=== PATIENT | male | born 1935 | race Asian ===

== ENCOUNTER 2024-02-14 15:16 | Inpatient (IN) | payer MEDICARE ==
[~2024-02-14] VITALS: Ht 167.6 cm; Wt 55.2 kg
[2024-02-14] VITALS (20 sets, daily range): BP systolic 86–111; BP diastolic 54–78; PULSE 102–127; RESP 24–36; TEMP 98.9–103.2; O2SAT 89–96
[2024-02-14] MEDS ORDERED: DEXTROSE 50% SYRINGE 50 ML IV PRN (17:30)
[2024-02-14] MEDS ORDERED: INSULIN REGULAR, HUMAN 3ML VL 100 UNIT in SODIUM CHLORIDE 0.9% 99 ML IV SCH (17:30)
[2024-02-14] MEDS ORDERED: DETROL LA4 MG PO (17:55)
[2024-02-14] MEDS ORDERED: ATORVASTATIN CA10 MG PO (17:55)
[2024-02-14] MEDS ORDERED: METFORMIN HCL500 M1 PO (17:55)
[2024-02-14] MEDS ORDERED: ALBUTEROL0.63 MG/3 NEB (17:55)
[2024-02-14] MEDS ORDERED: MIRTAZAPINE15 MG PO (17:55)
[2024-02-14] MEDS ORDERED: FLOMAX0.4 MG PO (17:55)
[2024-02-14] MEDS ORDERED: ACTOS15 MG PO (17:55)
[2024-02-14] MEDS ORDERED: JARDIANCE25 MG PO (17:55)
[2024-02-14] MEDS ORDERED: BENZONATATE 100 MG CAP PO PRN (18:00)
[2024-02-14 18:01] LABS: BASOPHILS # (AUTO) 0.1 (0.0-0.1); BASOPHILS % 2.8 % (0.0-1.0); HEMATOCRIT 46.3 % (38.2-49.6); HEMOGLOBIN 13.4 g/dL (14.0-18.0); LYMPHOCYTES # (AUTO) 0.2 (1.0-3.2); LYMPHOCYTES % 12.5 % (18.0-39.1); MEAN CORPUSCULAR HEMOGLOBIN 29.8 pg (28-32); MEAN CORPUSCULAR HGB CONC 28.9 g/dL (31-35); MEAN CORPUSCULAR VOLUME 103.1 fL (81-99); MONOCYTES % 2.3 % (4.4-11.3); NEUTROPHILS # (AUTO) 1.2 (2.1-6.9); NEUTROPHILS % 68.2 % (38.7-80.0); PLATELET COUNT 148 x10e3/uL (140-360); RED BLOOD COUNT 4.49 x10e6/uL (4.3-5.7)
[2024-02-14 18:03] LABS: ABG HCO3 13 mmol/L (22-26); ABG PCO2 25 mmHg (35-45); ABG PO2 55 mmHg (80-105); ABG TCO2 13
[2024-02-14 18:05] LABS: WHITE BLOOD COUNT 1.76 x10e3/uL (4.8-10.8)
[2024-02-14 18:25] LABS: ALBUMIN 2.8 g/dL (3.5-5.0); ALBUMIN/GLOBULIN RATIO 0.8 (0.8-2.0); ANION GAP 27.9 mmol/L (8-16); BILIRUBIN,TOTAL 0.4 mg/dL (0.2-1.2); CALCIUM 9.4 mg/dL (8.4-10.2); CREATININE, SERUM 2.21 mg/dL (0.72-1.25); POTASSIUM 3.9 mmol/L (3.5-5.1); TOTAL PROTEIN 6.4 g/dL (6.5-8.1)
[2024-02-14 19:34] LABS: MAGNESIUM 2.5 MG/DL (1.3-2.1)
[2024-02-14] MEDS ORDERED: HYDRALAZINE HCL 20 MG/ML VIAL IV PRN (19:45)
[2024-02-14] MEDS ORDERED: MAGNESIUM/ALUMINUM/SIMETHICONE 30 ML UDC PO PRN (19:45)
[2024-02-14] MEDS ORDERED: DOCUSATE SODIUM 100 MG CAP PO PRN (19:45)
[2024-02-14] MEDS: SODIUM BICARBONATE 8.4% VIAL 150 ML in STERILE WATER IV SOLN 1,000 ML IV SCH (19:52)
[2024-02-14 19:53] LABS: THYROID STIMULATING HORMONE 0.279 uIU/mL (0.350-4.940)
[2024-02-14] MEDS ORDERED: POTASSIUM CHLORIDE 20MEQ/100ML 200 ML IV PRN (20:15)
[2024-02-14] MEDS ORDERED: MAGNESIUM SULF 1GRAM/DEXTROSE 100 ML IV PRN (20:15)
[2024-02-14 20:59] LABS: BAND NEUTROPHILS % (MANUAL) 16 %; LYMPHOCYTES % (MANUAL) 28 % (19-48); METAMYELOCYTES % (MANUAL) 8 % (0-0); MONOCYTES % (MANUAL) 22 % (3.4-9.0); MYELOCYTES % (MANUAL) 2 % (0-0); NEUTROPHILS % (MANUAL) 12 % (40-74); NUCLEATED RED BLOOD CELLS 1; PROMYELOCYTES % (MANUAL) 12 % (0-0)
[2024-02-14] MEDS: ACETAMINOPHEN 325 MG TAB PO PRN (21:00)
[2024-02-14] MEDS ORDERED: OSELTAMIVIR PHOSPHATE 75 MG CAP PO SCH (21:00)
[2024-02-14 21:01] LABS: CRENATED RBC MODERATE
[2024-02-14 21:02] LABS: POIKILOCYTOSIS SLIGHT
[2024-02-14 21:04] LABS: ANISOCYTOSIS SLIG; PLATELET ESTIMATE ADEQUATE
[2024-02-14 21:05] LABS: PLATELET MORPHOLOGY COMMENT FEW LARGE
[2024-02-14] MEDS: Doxycycline IV 100 MG in SODIUM CHLORIDE 0.9% 100 ML IV SCH (21:28)
[2024-02-14] MEDS: MUPIROCIN 2% OINT 22 GM TUBE TOP SCH (21:28)
[2024-02-14] MEDS: THIAMINE HCL INJ 100 MG/ML 2ML VIAL IV ONE (21:55)
[2024-02-14] MEDS: HEPARIN SOD (PORCINE) 5,000 UNIT/ML VIAL SC SCH (21:57)
[2024-02-14] MEDS: OSELTAMIVIR PHOSPHATE 30 MG CAPSULE PO SCH (21:58)
[2024-02-15] VITALS (53 sets, daily range): BP systolic 67–135; BP diastolic 41–101; PULSE 51–123; RESP 18–38; TEMP 99.4–100; O2SAT 86–100
[2024-02-15] MEDS: IPRATROPIUM BROMIDE 0.02% 2.5 ML NEB NEB SCH (01:00)
[2024-02-15] MEDS: NOREPINEPHRINE 8 MG/D5W 250 ML 250 ML IV SCH (03:15)
[2024-02-15] MEDS ORDERED: Morphine 2mg Syringe 2 MG/ML SYR IV PRN (03:15)
[2024-02-15] MEDS: ACETAMINOPHEN 1000 MG/100 ML IV STA (03:21)
[2024-02-15 06:49] LABS: BASOPHILS % 1.5 % (0.0-1.0); HEMATOCRIT 38.5 % (38.2-49.6); LYMPHOCYTES # (AUTO) 0.1 (1.0-3.2); LYMPHOCYTES % 4.5 % (18.0-39.1); MEAN CORPUSCULAR HEMOGLOBIN 29.8 pg (28-32); MEAN CORPUSCULAR HGB CONC 30.6 g/dL (31-35); MONOCYTES # (AUTO) 0.1 (0.2-0.8); MONOCYTES % 3.8 % (4.4-11.3); NEUTROPHILS # (AUTO) 2.2 (2.1-6.9); NEUTROPHILS % 84.1 % (38.7-80.0); RED BLOOD COUNT 3.96 x10e6/uL (4.3-5.7); RED CELL DISTRIBUTION WIDTH 13.7 % (11.7-14.4); WHITE BLOOD COUNT 2.64 x10e3/uL (4.8-10.8)
[2024-02-15 06:57] LABS: PLATELET COUNT 109 x10e3/uL (140-360)
[2024-02-15 06:58] LABS: HEMOGLOBIN 11.8 g/dL (14.0-18.0); MEAN CORPUSCULAR VOLUME 97.2 fL (81-99)
[2024-02-15 07:03] LABS: ANION GAP 15.1 mmol/L (8-16); CALCIUM 8.6 mg/dL (8.4-10.2); CREATININE, SERUM 1.68 mg/dL (0.72-1.25)
[2024-02-15 07:05] LABS: POTASSIUM 3.1 mmol/L (3.5-5.1)
[2024-02-15] MEDS ORDERED: DEXTROSE 50% SYRINGE 50 ML IV PRN (08:00)
[2024-02-15] MEDS: POTASSIUM CHLORIDE 20MEQ/100ML 100 ML INJ PRN (08:05)
[2024-02-15] MEDS ORDERED: SODIUM BICARBONATE 8.4% IV SCH (08:30)
[2024-02-15] MEDS ORDERED: STERILE WATER IV SCH (08:30)
[2024-02-15] MEDS: FOLIC ACID 1 MG TAB PO SCH (09:00)
[2024-02-15] MEDS: THIAMINE HCL 100 MG TAB PO SCH (09:00)
[2024-02-15 09:19] LABS: BILIRUBIN,URINE SMALL (NEGATIVE); CLARITY,URINE CLEAR (CLEAR); COLOR,URINE YELLOW (YELLOW); GLUCOSE, URINE 500 (NEGATIVE); KETONES,URINE NEGATIVE (NEGATIVE); LEUKOCYTE ESTERASE ,URINE NEGATIVE (NEGATIVE); NITRITE,URINE NEGATIVE (NEGATIVE); PH,URINE 6 (5 - 7); PROTEIN,URINE DIPSTICK >=300 (NEGATIVE); URINE UROBILINOGEN 0.2 mg/dL (0.2 - 1)
[2024-02-15 09:52] LABS: BACTERIA,URINE MANY /HPF; EPITHELIAL CELLS,URINE FEW /LPF
[2024-02-15 09:55] LABS: TRANSITIONAL EPI CELLS,URINE RARE
[2024-02-15] MEDS: MULTIVITAMINS/MINERALS TAB PO SCH (10:36)
[2024-02-15] MEDS: FUROSEMIDE INJ 10 MG/ML 4 ML VIAL IV ONE (11:00)
[2024-02-15] MEDS: DEXTROSE 5%/0.45% SOD CHL 1,000 ML IV ONE ×3 (11:00→23:16)
[2024-02-15 11:01] LABS: BAND NEUTROPHILS % (MANUAL) 14 %; EOSINOPHILS % (MANUAL) 1 % (0-7); LYMPHOCYTES % (MANUAL) 2 % (19-48); METAMYELOCYTES % (MANUAL) 26 % (0-0); MONOCYTES % (MANUAL) 4 % (3.4-9.0); MYELOCYTES % (MANUAL) 20 % (0-0); NEUTROPHILS % (MANUAL) 33 % (40-74)
[2024-02-15 11:02] LABS: PLATELET ESTIMATE MODERATELY DECREASED; PLATELET MORPHOLOGY COMMENT NORMAL
[2024-02-15] MEDS: INSULIN REGULAR, HUMAN 100 UNIT/1 ML SQ SCH (12:39)
[2024-02-15 15:14] LABS: CREATININE,URINE RANDOM 80.68 mg/dL (63-166)
[2024-02-15 15:15] LABS: SODIUM,URINE < 20 mmol/L
[2024-02-15] MEDS: GUAIFENESIN/DEXTROMETHORPHAN LIQD 5 ML UDC NG PRN (20:20)
[2024-02-15] MEDS: MELATONIN 3 MG TAB PO PRN (20:22)
[2024-02-15] MEDS: ACETAMINOPHEN 1000 MG/100 ML IV PRN (21:00)
[2024-02-16] VITALS (49 sets, daily range): BP systolic 88–140; BP diastolic 57–112; PULSE 27–138; RESP 20–41; TEMP 97.4–99.2; O2SAT 89–100
[2024-02-16 09:38] LABS: BASOPHILS % 0.1 % (0.0-1.0); HEMATOCRIT 40.3 % (38.2-49.6); HEMOGLOBIN 12.2 g/dL (14.0-18.0); LYMPHOCYTES # (AUTO) 0.1 (1.0-3.2); LYMPHOCYTES % 0.7 % (18.0-39.1); MEAN CORPUSCULAR HEMOGLOBIN 29.8 pg (28-32); MEAN CORPUSCULAR HGB CONC 30.3 g/dL (31-35); MEAN CORPUSCULAR VOLUME 98.3 fL (81-99); MONOCYTES # (AUTO) 0.1 (0.2-0.8); MONOCYTES % 0.5 % (4.4-11.3); NEUTROPHILS # (AUTO) 14.2 (2.1-6.9); NEUTROPHILS % 96.7 % (38.7-80.0); PLATELET COUNT 55 x10e3/uL (140-360); RED CELL DISTRIBUTION WIDTH 14.1 % (11.7-14.4); WHITE BLOOD COUNT 14.73 x10e3/uL (4.8-10.8)
[2024-02-16] MEDS: DEXMEDETOMIDINE 400MCG/NS100ML 100 ML IV PRN (09:45)
[2024-02-16 10:18] LABS: ALBUMIN 2.3 g/dL (3.5-5.0); ALBUMIN/GLOBULIN RATIO 0.7 (0.8-2.0); ANION GAP 18.2 mmol/L (8-16); BILIRUBIN,TOTAL 0.9 mg/dL (0.2-1.2); CALCIUM 8.6 mg/dL (8.4-10.2); CREATININE, SERUM 1.27 mg/dL (0.72-1.25); POTASSIUM 3.2 mmol/L (3.5-5.1); TOTAL PROTEIN 5.6 g/dL (6.5-8.1)
[2024-02-16] MEDS: DEXTROSE 5% 1,000 ML IV ONE (10:52)
[2024-02-16] MEDS: POTASSIUM CHLORIDE 10MEQ/100ML 400 ML IV ONE (10:52)
[2024-02-16 12:03] LABS: BAND NEUTROPHILS % (MANUAL) 19 %; LYMPHOCYTES % (MANUAL) 4 % (19-48); METAMYELOCYTES % (MANUAL) 11 % (0-0); MONOCYTES % (MANUAL) 2 % (3.4-9.0); MYELOCYTES % (MANUAL) 5 % (0-0); NEUTROPHILS % (MANUAL) 59 % (40-74)
[2024-02-16 12:04] LABS: ANISOCYTOSIS SLIGHT; PLATELET ESTIMATE MARKEDLY DECREASED; PLATELET MORPHOLOGY COMMENT NORMAL
[2024-02-16] MEDS: DEXTROSE 5% 1,000 ML IV SCH (21:24)
[2024-02-16] MEDS: LORAZEPAM INJ 2 MG/ML VIAL IV ONE (23:36)
[2024-02-17] VITALS (38 sets, daily range): BP systolic 73–130; BP diastolic 55–82; PULSE 38–146; RESP 18–44; TEMP 97.6–99.7; O2SAT 55–100
[2024-02-17 06:49] LABS: BASOPHILS % 0.1 % (0.0-1.0); HEMATOCRIT 37.4 % (38.2-49.6); HEMOGLOBIN 11.1 g/dL (14.0-18.0); LYMPHOCYTES # (AUTO) 0.2 (1.0-3.2); LYMPHOCYTES % 1.6 % (18.0-39.1); MEAN CORPUSCULAR HEMOGLOBIN 29.8 pg (28-32); MEAN CORPUSCULAR HGB CONC 29.7 g/dL (31-35); MEAN CORPUSCULAR VOLUME 100.3 fL (81-99); MONOCYTES # (AUTO) 0.1 (0.2-0.8); MONOCYTES % 0.9 % (4.4-11.3); NEUTROPHILS # (AUTO) 9.5 (2.1-6.9); NEUTROPHILS % 89.4 % (38.7-80.0); RED BLOOD COUNT 3.73 x10e6/uL (4.3-5.7); RED CELL DISTRIBUTION WIDTH 13.1 % (11.7-14.4); WHITE BLOOD COUNT 10.66 x10e3/uL (4.8-10.8)
[2024-02-17 07:06] LABS: PLATELET COUNT 31 x10e3/uL (140-360)
[2024-02-17 07:23] LABS: ALBUMIN 1.9 g/dL (3.5-5.0); ALBUMIN/GLOBULIN RATIO 0.6 (0.8-2.0); ANION GAP 19.7 mmol/L (8-16); BILIRUBIN,TOTAL 0.9 mg/dL (0.2-1.2); CALCIUM 8.5 mg/dL (8.4-10.2); CREATININE, SERUM 1.1 mg/dL (0.72-1.25); POTASSIUM 3.7 mmol/L (3.5-5.1); TOTAL PROTEIN 5.1 g/dL (6.5-8.1)
[2024-02-17] MEDS: LORAZEPAM INJ 2 MG/ML VIAL IV ONE (09:29)
[2024-02-17 10:46] LABS: ABG HCO3 13 mmol/L (22-26); ABG PCO2 25 mmHg (35-45); ABG PO2 55 mmHg (80-105); ABG TCO2 13
[2024-02-17 10:52] LABS: ANISOCYTOSIS SLIGHT; BAND NEUTROPHILS % (MANUAL) 8 %; LYMPHOCYTES % (MANUAL) 5 % (19-48); METAMYELOCYTES % (MANUAL) 6 % (0-0); MONOCYTES % (MANUAL) 1 % (3.4-9.0); MYELOCYTES % (MANUAL) 5 % (0-0); NEUTROPHILS % (MANUAL) 75 % (40-74); PLATELET ESTIMATE MARKEDLY DECREASED; PLATELET MORPHOLOGY COMMENT NORMAL
[2024-02-17] MEDS: LORAZEPAM INJ 2 MG/ML VIAL IV PRN (23:26)
[2024-02-18] VITALS (49 sets, daily range): BP systolic 70–129; BP diastolic 57–96; PULSE 52–108; RESP 20–33; TEMP 97.8–99; O2SAT 93–100
[2024-02-18 06:20] LABS: BASOPHILS % 0.1 % (0.0-1.0); HEMATOCRIT 34.1 % (38.2-49.6); HEMOGLOBIN 10.8 g/dL (14.0-18.0); LYMPHOCYTES # (AUTO) 0.2 (1.0-3.2); LYMPHOCYTES % 1.8 % (18.0-39.1); MEAN CORPUSCULAR HEMOGLOBIN 29.7 pg (28-32); MEAN CORPUSCULAR HGB CONC 31.7 g/dL (31-35); MONOCYTES # (AUTO) 0.2 (0.2-0.8); MONOCYTES % 2.1 % (4.4-11.3); NEUTROPHILS # (AUTO) 9.1 (2.1-6.9); NEUTROPHILS % 89.6 % (38.7-80.0); RED BLOOD COUNT 3.64 x10e6/uL (4.3-5.7); RED CELL DISTRIBUTION WIDTH 14.1 % (11.7-14.4); WHITE BLOOD COUNT 10.16 x10e3/uL (4.8-10.8)
[2024-02-18 06:27] LABS: MEAN CORPUSCULAR VOLUME 93.7 fL (81-99); PLATELET COUNT 26 x10e3/uL (140-360)
[2024-02-18 07:12] LABS: ALBUMIN 1.7 g/dL (3.5-5.0); ALBUMIN/GLOBULIN RATIO 0.5 (0.8-2.0); ANION GAP 15.6 mmol/L (8-16); BILIRUBIN,TOTAL 0.7 mg/dL (0.2-1.2); CALCIUM 8.2 mg/dL (8.4-10.2); CREATININE, SERUM 0.97 mg/dL (0.72-1.25); POTASSIUM 3.6 mmol/L (3.5-5.1); TOTAL PROTEIN 4.8 g/dL (6.5-8.1)
[2024-02-18 08:19] LABS: LYMPHOCYTES % (MANUAL) 4 % (19-48); MONOCYTES % (MANUAL) 3 % (3.4-9.0); MYELOCYTES % (MANUAL) 2 % (0-0); NEUTROPHILS % (MANUAL) 91 % (40-74); PLATELET ESTIMATE MARKEDLY DECREASED; PLATELET MORPHOLOGY COMMENT NORMAL; RBC MORPHOLOGY COMMENT NORMAL
[2024-02-18] MEDS: VASOPRESSIN 60 UNIT in DEXTROSE 5% 50ML 57 ML IV SCH (16:30)
[2024-02-18 18:09] LABS: ABG PCO2 51 mmHg (35-45); ABG PH 7.35 (7.35-7.45); ABG PO2 135 mmHg (80-105)
[2024-02-18 18:10] LABS: ABG HCO3 28 mmol/L (22-26); ABG TCO2 30
[2024-02-18] MEDS: PERIPHERAL TPN FORMULA 1 BAG IV SCH (19:33)
[2024-02-19] VITALS (42 sets, daily range): BP systolic 72–198; BP diastolic 58–115; PULSE 48–113; RESP 20–47; TEMP 98.3–100.2; O2SAT 92–100
[2024-02-19] MEDS: LORAZEPAM INJ 2 MG/ML VIAL IV ONE (00:50)
[2024-02-19 04:34] LABS: ABG HCO3 24 mmol/L (22-26); ABG PCO2 42 mmHg (35-45); ABG PH 7.37 (7.35-7.45); ABG PO2 81 mmHg (80-105); ABG TCO2 25
[2024-02-19 07:04] LABS: BASOPHILS % 0.4 % (0.0-1.0); HEMATOCRIT 28.5 % (38.2-49.6); HEMOGLOBIN 8.8 g/dL (14.0-18.0); LYMPHOCYTES # (AUTO) 0.2 (1.0-3.2); LYMPHOCYTES % 2.9 % (18.0-39.1); MEAN CORPUSCULAR HEMOGLOBIN 29.8 pg (28-32); MEAN CORPUSCULAR HGB CONC 30.9 g/dL (31-35); MEAN CORPUSCULAR VOLUME 96.6 fL (81-99); MONOCYTES # (AUTO) 0.1 (0.2-0.8); MONOCYTES % 1.8 % (4.4-11.3); NEUTROPHILS # (AUTO) 7.3 (2.1-6.9); NEUTROPHILS % 91.1 % (38.7-80.0); RED BLOOD COUNT 2.95 x10e6/uL (4.3-5.7); RED CELL DISTRIBUTION WIDTH 14.2 % (11.7-14.4); WHITE BLOOD COUNT 7.98 x10e3/uL (4.8-10.8)
[2024-02-19 07:18] LABS: PLATELET COUNT 22 x10e3/uL (140-360)
[2024-02-19 07:24] LABS: ALBUMIN 1.1 g/dL (3.5-5.0); ALBUMIN/GLOBULIN RATIO 0.5 (0.8-2.0); ANION GAP 15.4 mmol/L (8-16); BILIRUBIN,TOTAL 0.6 mg/dL (0.2-1.2); CALCIUM 7.1 mg/dL (8.4-10.2); CREATININE, SERUM 0.78 mg/dL (0.72-1.25); TOTAL PROTEIN 3.4 g/dL (6.5-8.1)
[2024-02-19 07:31] LABS: POTASSIUM 6.4 mmol/L (3.5-5.1)
[2024-02-19 08:54] LABS: ALBUMIN 1.5 g/dL (3.5-5.0); ALBUMIN/GLOBULIN RATIO 0.4 (0.8-2.0); ANION GAP 17.2 mmol/L (8-16); BILIRUBIN,TOTAL 0.8 mg/dL (0.2-1.2); CALCIUM 8.5 mg/dL (8.4-10.2); CREATININE, SERUM 0.92 mg/dL (0.72-1.25); POTASSIUM 4.2 mmol/L (3.5-5.1); TOTAL PROTEIN 4.9 g/dL (6.5-8.1)
[2024-02-19 09:17] LABS: BAND NEUTROPHILS % (MANUAL) 9 %; LYMPHOCYTES % (MANUAL) 5 % (19-48); MONOCYTES % (MANUAL) 1 % (3.4-9.0); NEUTROPHILS % (MANUAL) 85 % (40-74); PLATELET ESTIMATE MARKEDLY DECREASED; PLATELET MORPHOLOGY COMMENT NORMAL; RBC MORPHOLOGY COMMENT NORMAL
[2024-02-19 09:56] LABS: ABG HCO3 24 mmol/L (22-26); ABG PCO2 42 mmHg (35-45); ABG PH 7.37 (7.35-7.45); ABG PO2 81 mmHg (80-105); ABG TCO2 25
[2024-02-19 09:56] LABS: ABG HCO3 28 mmol/L (22-26); ABG PCO2 51 mmHg (35-45); ABG PH 7.35 (7.35-7.45); ABG PO2 135 mmHg (80-105); ABG TCO2 30
[2024-02-19] MEDS: DEXTROSE 5% 1,000 ML IV ONE (10:55)
[2024-02-19] MEDS ORDERED: SODIUM BICARBONATE 8.4% SYRING 150 ML in STERILE WATER IV SOLN 1,000 ML IV SCH (12:00)
[2024-02-19] MEDS: SODIUM BICARBONATE 8.4% INJ 50 ML SYR IV ONE (12:45)
[2024-02-19] MEDS: CALCIUM GLUC 1 G/50 ML NACL 50 ML IV ONE (12:45)
[2024-02-20] VITALS (37 sets, daily range): BP systolic 98–168; BP diastolic 62–104; PULSE 57–104; RESP 18–34; TEMP 98.1–99.5; O2SAT 98–100
[2024-02-20 07:06] LABS: BASOPHILS # (AUTO) 0.1 (0.0-0.1); BASOPHILS % 0.4 % (0.0-1.0); HEMATOCRIT 30.2 % (38.2-49.6); HEMOGLOBIN 9.3 g/dL (14.0-18.0); LYMPHOCYTES # (AUTO) 0.3 (1.0-3.2); LYMPHOCYTES % 2.4 % (18.0-39.1); MEAN CORPUSCULAR HEMOGLOBIN 29.5 pg (28-32); MEAN CORPUSCULAR HGB CONC 30.8 g/dL (31-35); MEAN CORPUSCULAR VOLUME 95.9 fL (81-99); MONOCYTES # (AUTO) 0.3 (0.2-0.8); MONOCYTES % 2.3 % (4.4-11.3); NEUTROPHILS # (AUTO) 10.6 (2.1-6.9); NEUTROPHILS % 93.1 % (38.7-80.0); RED BLOOD COUNT 3.15 x10e6/uL (4.3-5.7); RED CELL DISTRIBUTION WIDTH 14.6 % (11.7-14.4); WHITE BLOOD COUNT 11.43 x10e3/uL (4.8-10.8)
[2024-02-20 07:16] LABS: PLATELET COUNT 42 x10e3/uL (140-360)
[2024-02-20] MEDS: LORAZEPAM INJ 2 MG/ML VIAL IV ONE (08:09)
[2024-02-20 09:06] LABS: ALBUMIN 1.7 g/dL (3.5-5.0); ALBUMIN/GLOBULIN RATIO 0.5 (0.8-2.0); ANION GAP 23.3 mmol/L (8-16); BILIRUBIN,TOTAL 1.1 mg/dL (0.2-1.2); CALCIUM 8.9 mg/dL (8.4-10.2); CREATININE, SERUM 0.86 mg/dL (0.72-1.25); TOTAL PROTEIN 5.3 g/dL (6.5-8.1)
[2024-02-20 09:16] LABS: POTASSIUM 3.3 mmol/L (3.5-5.1)
[2024-02-20] MEDS: INSULIN GLARGINE 100 UNITS/ML VIAL SQ SCH (09:51)
[2024-02-20] MEDS: DEXTROSE 5% 1,000 ML IV ONE (09:55)
[2024-02-20] MEDS: POTASSIUM CHLORIDE 20MEQ/100ML 100 ML IV ONE (10:00)
[2024-02-20] MEDS: DEXTROSE 5% 250ML 250 ML IV ONE (16:46)
[2024-02-20] MEDS: DEXTROSE 5% 1,000 ML IV SCH (16:46)
[2024-02-20] MEDS: ONDANSETRON HCL INJ 2MG/ML 2ML 2 MG/ML VIAL IV PRN (23:55)
[2024-02-21] VITALS (32 sets, daily range): BP systolic 111–149; BP diastolic 57–90; PULSE 25–84; RESP 18–32; TEMP 98.1–99.8; O2SAT 92–100
[2024-02-21 03:02] LABS: VANCOMYCIN,TROUGH 17.6 ug/mL (5.0-10.0)
[2024-02-21 09:16] LABS: BASOPHILS % 0.3 % (0.0-1.0); EOSINOPHILS % 0.1 % (0.0-6.0); HEMATOCRIT 40.1 % (38.2-49.6); HEMOGLOBIN 11.8 g/dL (14.0-18.0); LYMPHOCYTES # (AUTO) 0.3 (1.0-3.2); LYMPHOCYTES % 2.9 % (18.0-39.1); MEAN CORPUSCULAR HEMOGLOBIN 29.9 pg (28-32); MEAN CORPUSCULAR HGB CONC 29.4 g/dL (31-35); MEAN CORPUSCULAR VOLUME 101.5 fL (81-99); MONOCYTES # (AUTO) 0.2 (0.2-0.8); MONOCYTES % 2.1 % (4.4-11.3); NEUTROPHILS # (AUTO) 10.4 (2.1-6.9); NEUTROPHILS % 93.7 % (38.7-80.0); PLATELET COUNT 53 x10e3/uL (140-360); RED BLOOD COUNT 3.95 x10e6/uL (4.3-5.7); WHITE BLOOD COUNT 11.05 x10e3/uL (4.8-10.8)
[2024-02-21 09:49] LABS: ALBUMIN 1.5 g/dL (3.5-5.0); ALBUMIN/GLOBULIN RATIO 0.4 (0.8-2.0); ANION GAP 15.5 mmol/L (8-16); CALCIUM 8.1 mg/dL (8.4-10.2); CREATININE, SERUM 0.72 mg/dL (0.72-1.25); POTASSIUM 3.5 mmol/L (3.5-5.1)
[2024-02-22] VITALS (33 sets, daily range): BP systolic 106–157; BP diastolic 65–117; PULSE 66–98; RESP 21–32; TEMP 99.5–100; O2SAT 81–98
[2024-02-22] MEDS ORDERED: DEXMEDETOMIDINE 400MCG/NS100ML 100 ML IV PRN (07:30)
[2024-02-22] MEDS: BISACODYL 10 MG SUPP PR ONE (08:09)
[2024-02-22 08:25] LABS: BASOPHILS % 0.1 % (0.0-1.0); EOSINOPHILS % 0.1 % (0.0-6.0); HEMATOCRIT 32.4 % (38.2-49.6); HEMOGLOBIN 9.9 g/dL (14.0-18.0); LYMPHOCYTES # (AUTO) 0.3 (1.0-3.2); LYMPHOCYTES % 2.6 % (18.0-39.1); MEAN CORPUSCULAR HEMOGLOBIN 29.5 pg (28-32); MEAN CORPUSCULAR HGB CONC 30.6 g/dL (31-35); MEAN CORPUSCULAR VOLUME 96.4 fL (81-99); MONOCYTES # (AUTO) 0.2 (0.2-0.8); MONOCYTES % 1.9 % (4.4-11.3); NEUTROPHILS # (AUTO) 10.5 (2.1-6.9); NEUTROPHILS % 94.4 % (38.7-80.0); PLATELET COUNT 79 x10e3/uL (140-360); RED BLOOD COUNT 3.36 x10e6/uL (4.3-5.7); RED CELL DISTRIBUTION WIDTH 13.9 % (11.7-14.4); WHITE BLOOD COUNT 11.08 x10e3/uL (4.8-10.8)
[2024-02-22 08:52] LABS: ANION GAP 14.6 mmol/L (8-16); CALCIUM 7.8 mg/dL (8.4-10.2); CREATININE, SERUM 0.64 mg/dL (0.72-1.25); MAGNESIUM 2.6 MG/DL (1.3-2.1); PHOSPHORUS 4.9 MG/DL (2.3-4.7); POTASSIUM 4.6 mmol/L (3.5-5.1)
[2024-02-22] MEDS ORDERED: MELATONIN 3 MG TAB PO PRN (10:30)
[2024-02-22] MEDS: DEXMEDETOMIDINE 400MCG/NS100ML 100 ML IV PRN (11:29)
[2024-02-22] MEDS ORDERED: TRAZODONE HCL 50 MG TAB PO SCH (21:00)
[2024-02-22] MEDS ORDERED: MELATONIN 3 MG TAB PO SCH (21:00)
[2024-02-23] VITALS (32 sets, daily range): BP systolic 110–149; BP diastolic 50–104; PULSE 68–122; RESP 16–33; TEMP 98.5–99.8; O2SAT 93–100
[2024-02-23 06:50] LABS: BASOPHILS % 0.1 % (0.0-1.0); EOSINOPHILS % 0.2 % (0.0-6.0); HEMATOCRIT 30.5 % (38.2-49.6); HEMOGLOBIN 9.8 g/dL (14.0-18.0); LYMPHOCYTES # (AUTO) 0.4 (1.0-3.2); MEAN CORPUSCULAR HEMOGLOBIN 29.4 pg (28-32); MEAN CORPUSCULAR HGB CONC 32.1 g/dL (31-35); MEAN CORPUSCULAR VOLUME 91.6 fL (81-99); MONOCYTES # (AUTO) 0.2 (0.2-0.8); MONOCYTES % 1.6 % (4.4-11.3); NEUTROPHILS # (AUTO) 12.6 (2.1-6.9); NEUTROPHILS % 94.3 % (38.7-80.0); PLATELET COUNT 158 x10e3/uL (140-360); RED BLOOD COUNT 3.33 x10e6/uL (4.3-5.7); RED CELL DISTRIBUTION WIDTH 13.7 % (11.7-14.4); WHITE BLOOD COUNT 13.39 x10e3/uL (4.8-10.8)
[2024-02-23 07:15] LABS: ANION GAP 12.9 mmol/L (8-16); CALCIUM 7.5 mg/dL (8.4-10.2); CREATININE, SERUM 0.64 mg/dL (0.72-1.25)
[2024-02-23 07:24] LABS: POTASSIUM 2.9 mmol/L (3.5-5.1)
[2024-02-23] MEDS ORDERED: SODIUM CHLORIDE 0.9% 250ML 250 ML IV ONE (10:00)
[2024-02-23] MEDS: POTASSIUM CHLORIDE 20MEQ/100ML 200 ML IV ONE (10:41)
[2024-02-23] MEDS: SODIUM CHLORIDE 0.9% 250ML 250 ML IV ONE (10:44)
[2024-02-23] MEDS ORDERED: MULTIVITAMINS/MINERALS TAB PO SCH (13:30)
[2024-02-23] MEDS: LACTOBACILLUS ACIDOPHILUS CAPSULE PO SCH (14:29)
[2024-02-23] MEDS: PERIPHERAL TPN FORMULA 1 BAG IV SCH (19:56)
[2024-02-23] MEDS: MELATONIN 3 MG TAB PO SCH (21:45)
[2024-02-24] VITALS (30 sets, daily range): BP systolic 91–167; BP diastolic 58–126; PULSE 52–125; RESP 14–26; TEMP 96.7–97.8; O2SAT 88–100
[2024-02-24 06:42] LABS: BASOPHILS % 0.1 % (0.0-1.0); EOSINOPHILS % 0.1 % (0.0-6.0); HEMATOCRIT 26.7 % (38.2-49.6); HEMOGLOBIN 8.4 g/dL (14.0-18.0); LYMPHOCYTES # (AUTO) 0.3 (1.0-3.2); MEAN CORPUSCULAR HEMOGLOBIN 29.2 pg (28-32); MEAN CORPUSCULAR HGB CONC 31.5 g/dL (31-35); MEAN CORPUSCULAR VOLUME 92.7 fL (81-99); MONOCYTES # (AUTO) 0.3 (0.2-0.8); MONOCYTES % 2.6 % (4.4-11.3); NEUTROPHILS # (AUTO) 9.8 (2.1-6.9); NEUTROPHILS % 93.6 % (38.7-80.0); PLATELET COUNT 186 x10e3/uL (140-360); RED BLOOD COUNT 2.88 x10e6/uL (4.3-5.7); RED CELL DISTRIBUTION WIDTH 13.5 % (11.7-14.4); WHITE BLOOD COUNT 10.41 x10e3/uL (4.8-10.8)
[2024-02-24 07:00] LABS: ALBUMIN 1.4 g/dL (3.5-5.0); ALBUMIN/GLOBULIN RATIO 0.5 (0.8-2.0); ANION GAP 12.1 mmol/L (8-16); BILIRUBIN,TOTAL 0.8 mg/dL (0.2-1.2); CALCIUM 7.4 mg/dL (8.4-10.2); CREATININE, SERUM 0.57 mg/dL (0.72-1.25); TOTAL PROTEIN 4.4 g/dL (6.5-8.1)
[2024-02-24 07:13] LABS: POTASSIUM 3.1 mmol/L (3.5-5.1)
[2024-02-24] MEDS: FUROSEMIDE 20 MG TAB PO SCH (08:31)
[2024-02-24] MEDS: POTASSIUM CHLORIDE 20MEQ/100ML 100 ML IV SCH (14:03)
[2024-02-24] MEDS: PERIPHERAL TPN FORMULA 1 BAG IV SCH (19:57)
[2024-02-25] VITALS (34 sets, daily range): BP systolic 88–178; BP diastolic 58–93; PULSE 57–105; RESP 13–25; TEMP 95.2–100; O2SAT 76–100
[2024-02-25 07:35] LABS: ANION GAP 12.3 mmol/L (8-16); CALCIUM 7.4 mg/dL (8.4-10.2); CREATININE, SERUM 0.55 mg/dL (0.72-1.25)
[2024-02-25 07:48] LABS: POTASSIUM 3.3 mmol/L (3.5-5.1)
[2024-02-25] MEDS: POTASSIUM CHLORIDE 20MEQ/100ML 100 ML IV SCH (09:52)
[2024-02-25] MEDS: CALCIUM GLUC 1 G/50 ML NACL 50 ML IV SCH (12:17)
[2024-02-25] MEDS ORDERED: PERIPHERAL TPN FORMULA 1 BAG IV SCH (20:00)
[2024-02-25] MEDS: PERIPHERAL TPN FORMULA 1 BAG IV SCH (20:03)
[2024-02-26] VITALS (29 sets, daily range): BP systolic 113–162; BP diastolic 70–106; PULSE 31–131; RESP 15–21; TEMP 99.1–99.7; O2SAT 92–100
[2024-02-26 06:35] LABS: BASOPHILS % 0.2 % (0.0-1.0); HEMOGLOBIN 8.7 g/dL (14.0-18.0); LYMPHOCYTES # (AUTO) 0.3 (1.0-3.2); LYMPHOCYTES % 2.9 % (18.0-39.1); MEAN CORPUSCULAR HEMOGLOBIN 29.6 pg (28-32); MEAN CORPUSCULAR HGB CONC 32.2 g/dL (31-35); MEAN CORPUSCULAR VOLUME 91.8 fL (81-99); MONOCYTES # (AUTO) 0.4 (0.2-0.8); MONOCYTES % 3.9 % (4.4-11.3); NEUTROPHILS # (AUTO) 10.3 (2.1-6.9); NEUTROPHILS % 92.3 % (38.7-80.0); PLATELET COUNT 317 x10e3/uL (140-360); RED BLOOD COUNT 2.94 x10e6/uL (4.3-5.7); RED CELL DISTRIBUTION WIDTH 13.8 % (11.7-14.4); WHITE BLOOD COUNT 11.17 x10e3/uL (4.8-10.8)
[2024-02-26 07:08] LABS: ALBUMIN 1.6 g/dL (3.5-5.0); ALBUMIN/GLOBULIN RATIO 0.5 (0.8-2.0); ANION GAP 15.6 mmol/L (8-16); BILIRUBIN,TOTAL 0.7 mg/dL (0.2-1.2); CALCIUM 7.8 mg/dL (8.4-10.2); CREATININE, SERUM 0.63 mg/dL (0.72-1.25); POTASSIUM 3.6 mmol/L (3.5-5.1)
[2024-02-26] MEDS: PERIPHERAL TPN FORMULA 1 BAG IV SCH (19:57)
[2024-02-27] VITALS (29 sets, daily range): BP systolic 135–171; BP diastolic 70–150; PULSE 91–133; RESP 14–20; TEMP 98.9–99.7; O2SAT 95–100
[2024-02-27] MEDS ORDERED: PERIPHERAL TPN FORMULA 1 BAG IV SCH (09:51)
[2024-02-27] MEDS: CENTRAL TPN FORMULA 1 BAG IV SCH (19:48)
[2024-02-28] VITALS (14 sets, daily range): BP systolic 135–155; BP diastolic 80–108; PULSE 96–139; RESP 15–21; TEMP 99.3–99.4; O2SAT 93–99
[2024-02-28 06:33] LABS: BASOPHILS % 0.3 % (0.0-1.0); EOSINOPHILS % 0.1 % (0.0-6.0); HEMATOCRIT 29.2 % (38.2-49.6); LYMPHOCYTES # (AUTO) 0.4 (1.0-3.2); LYMPHOCYTES % 3.1 % (18.0-39.1); MEAN CORPUSCULAR HEMOGLOBIN 29.3 pg (28-32); MEAN CORPUSCULAR HGB CONC 30.8 g/dL (31-35); MEAN CORPUSCULAR VOLUME 95.1 fL (81-99); MONOCYTES # (AUTO) 0.5 (0.2-0.8); MONOCYTES % 3.9 % (4.4-11.3); NEUTROPHILS # (AUTO) 10.6 (2.1-6.9); NEUTROPHILS % 92.1 % (38.7-80.0); PLATELET COUNT 389 x10e3/uL (140-360); RED BLOOD COUNT 3.07 x10e6/uL (4.3-5.7); RED CELL DISTRIBUTION WIDTH 14.1 % (11.7-14.4); WHITE BLOOD COUNT 11.48 x10e3/uL (4.8-10.8)
[2024-02-28 07:06] LABS: ALBUMIN 1.7 g/dL (3.5-5.0); ALBUMIN/GLOBULIN RATIO 0.5 (0.8-2.0); ANION GAP 14.1 mmol/L (8-16); BILIRUBIN,TOTAL 0.8 mg/dL (0.2-1.2); CALCIUM 7.5 mg/dL (8.4-10.2); CREATININE, SERUM 0.62 mg/dL (0.72-1.25); TOTAL PROTEIN 5.3 g/dL (6.5-8.1)
[2024-02-28 07:07] LABS: POTASSIUM 3.1 mmol/L (3.5-5.1)
[2024-02-28] MEDS ORDERED: LORAZEPAM INJ 2 MG/ML VIAL IV PRN (08:00)
[2024-02-28] MEDS ORDERED: LIDOCAINE HCL 2% LOCAL INJ 5 ML SDV VIAL INJ ONE (09:11)
[2024-02-28] MEDS ORDERED: PROPOFOL IV EMULSION 10 MG/ML 20 ML VIAL ONE (09:11)
[2024-02-28] MEDS: POTASSIUM CHLORIDE 20MEQ/100ML 200 ML IV ONE (12:03)
[2024-02-28] MEDS ORDERED: Folic Acid PO (12:23)
[2024-02-28] MEDS ORDERED: MELATONIN3 MG PO (12:23)
[2024-02-28] MEDS ORDERED: Lactobacillus Acidophilus PO (12:23)
[2024-02-28] MEDS ORDERED: Insulin Glargine SQ (12:23)
[2024-02-28] MEDS ORDERED: B-1100 MG PO (12:23)
[2024-02-28] MEDS ORDERED: Multivitamins/Minerals Tab PO (12:23)
[2024-02-28] MEDS ORDERED: PANTOPRAZOLE SO40 MG PO (12:23)
== END 2024-02-28 12:40 | DRG 871 ==
LOC: ICU 16:45
PROVIDERS: ADMIT Internal Medicine; ATTEND Internal Medicine
PROC: 4A133R1 Monitoring of Arterial Saturation, Peripheral, Percutaneous Approach (ICD-10-PCS; principal; 2024-02-14)
PROC: 3E0333Z Introduction of Anti-inflammatory into Peripheral Vein, Percutaneous Approach (ICD-10-PCS; 2024-02-14)
PROC: 02HV33Z Insertion of Infusion Device into Superior Vena Cava, Percutaneous Approach (ICD-10-PCS; 2024-02-15)
PROC: 5A09457 Assistance with Respiratory Ventilation, 24-96 Consecutive Hours, Continuous Positive Airway Pressure (ICD-10-PCS; 2024-02-15)
PROC: 3E033XZ Introduction of Vasopressor into Peripheral Vein, Percutaneous Approach (ICD-10-PCS; 2024-02-18)
PROC: 0DH64UZ Insertion of Feeding Device into Stomach, Percutaneous Endoscopic Approach (ICD-10-PCS; 2024-02-28)
DX: A41.89 Other specified sepsis (principal); E11.10 Type 2 diabetes mellitus with ketoacidosis without coma; G92.8 Other toxic encephalopathy; J96.01 Acute respiratory failure with hypoxia; J10.01 Influenza due to other identified influenza virus with the same other identified influenza virus pneumonia; J12.89 Other viral pneumonia; K26.4 Chronic or unspecified duodenal ulcer with hemorrhage; N17.0 Acute kidney failure with tubular necrosis; K31.5 Obstruction of duodenum; E87.0 Hyperosmolality and hypernatremia; E44.0 Moderate protein-calorie malnutrition; N39.0 Urinary tract infection, site not specified; E87.1 Hypo-osmolality and hyponatremia; Z68.1 Body mass index [BMI] 19.9 or less, adult; R65.20 Severe sepsis without septic shock; R62.7 Adult failure to thrive; Z66 Do not resuscitate; R13.12 Dysphagia, oropharyngeal phase; D69.59 Other secondary thrombocytopenia; E11.22 Type 2 diabetes mellitus with diabetic chronic kidney disease; I12.9 Hypertensive chronic kidney disease with stage 1 through stage 4 chronic kidney disease, or unspecified chronic kidney disease; N18.30 Chronic kidney disease, stage 3 unspecified; E78.5 Hyperlipidemia, unspecified; E87.6 Hypokalemia; G47.00 Insomnia, unspecified; E87.70 Fluid overload, unspecified; D64.9 Anemia, unspecified; N40.1 Benign prostatic hyperplasia with lower urinary tract symptoms; K29.70 Gastritis, unspecified, without bleeding; F03.90 Unspecified dementia, unspecified severity, without behavioral disturbance, psychotic disturbance, mood disturbance, and anxiety; N32.81 Overactive bladder; Z79.84 Long term (current) use of oral hypoglycemic drugs; F17.210 Nicotine dependence, cigarettes, uncomplicated
CPT/HCPCS: 36415; 36569; 36600; 43246; 71045; 74018; 76770; 80048; 80053; 80202; 81001; 82140; 82570; 82805; 82948; 83036; 83605; 83690; 83735; 84100; 84295; 84300; 84443; 85025; 86022; 87040; 93005; 93306; 94640; 94660; 94799; 96372; 99252; J0696; J1644; J1815; J1940; J2003; J2060; J2185; J2405; J2543; J3411; J3480; J7050; J7070